=== PATIENT | male | born 1975 | race Caucasian/White ===

== ENCOUNTER 2020-08-23 21:33 | Emergency (ER) | payer BC ==
[~2020-08-23] VITALS: Ht 182.9 cm; Wt 90.9 kg
[2020-08-23 21:58] LABS: BASOPHILS % (AUTO) 0 % (0-10); EOSINOPHILS # (AUTO) 0.2 10^3/uL (0.0-0.3); EOSINOPHILS % (AUTO) 2 % (0-10); HEMATOCRIT 41 % (40-54); LYMPHOCYTES # (AUTO) 3.6 10^3/uL (1.0-4.0); LYMPHOCYTES % (AUTO) 36 % (12-44); MEAN CORPUSCULAR HEMOGLOBIN 30 pg (25-34); MEAN CORPUSCULAR HGB CONC 34 g/dL (32-36); MEAN CORPUSCULAR VOLUME 87 fL (80-99); MEAN PLATELET VOLUME 10.5 fL (9.0-12.2); MONOCYTES # (AUTO) 0.8 10^3/uL (0.0-1.0); MONOCYTES % (AUTO) 8 % (0-12); NEUTROPHILS # (AUTO) 5.3 10^3/uL (1.8-7.8); NEUTROPHILS % (AUTO) 54 % (42-75); PLATELET COUNT 336 10^3/uL (130-400); WHITE BLOOD COUNT 9.9 10^3/uL (4.3-11.0)
[2020-08-23] MEDS ORDERED: ASPIRIN 81 MG CHEW (CHILDREN'S ASA) PO ONE (22:00)
--- NOTE | 2020-08-23 22:03 | ED Chest Pain ---
General Chief Complaint: Chest Pain Stated Complaint: ELEV BP 176/105, CP Source: patient Exam Limitations: no limitations History of Present Illness Date Seen by Provider: Aug 23, 2020 Time Seen by Provider: 21:37 Initial Comments Patient presents ER by private conveyance with chief complaint about 1 hour prior he was sitting on the couch and felt some chest pain in his left chest nonradiating intermittent lasting about 10 to 20 seconds at a time and then alex g away about 4 or 5 times over the past hour. He has no previous history of this chest pain. It is not reproducible by deep inspiration or palpation. He does not have a cough shortness of air fever chills nausea vomiting diarrhea or sweats. He has no history of coronary disease. He did not take anything for it and came straight to the ER. He has no personal or primary family history of early onset coronary disease. He smokes about a pack of cigarettes per day has hyperlipidemia and does not take any medications. He is followed by Dr. Du. He has no other significant medical history. He says he has a occasional use of marijuana and a distant history of using stimulants but none in the past several years. Took his blood pressure and noted that it was up around 1 70-1 80 systolic. No history of anxiety or GERD. Allergies and Home Medications Allergies Coded Allergies: No Known Drug Allergies (Unverified , 08/23/20) Patient Home Medication List Home Medication List Reviewed: Yes Review of Systems Review of Systems Constitutional: No chills, No diaphoresis EENTM: No Blurred Vision, No Double Vision Respiratory: Denies Cough, Denies Shortness of Air Cardiovascular: See HPI, Chest Pain; Denies Irregular Heart Rate, Denies Lightheadedness Gastrointestinal: Denies Abdominal Pain, Denies Constipated, Denies Diarrhea, Denies Nausea Genitourinary: Denies Burning, Denies Discharge Musculoskeletal: No back pain, No joint pain All Other Systems Reviewed Negative Unless Noted: Yes Past [id number]-Clkwdm Hx Patient Social History Alcohol Use: Denies Use Recreational Drug Use: Yes Drug of Choice: Distant history of stimulants; occasional cannabis Smoking Status: Current Everyday Smoker Type Used: Cigarettes 2nd Hand Smoke Exposure: No Recent Foreign Travel: No Contact w/Someone Who Travel: No Recent Hopitalizations: No Physical Abuse: No Sexual Abuse: No Mistreated: No Fear: No Seasonal Allergies Seasonal Allergies: No Past Medical History Surgeries: Yes (EYE) Appendectomy Respiratory: No Cardiac: No Neurological: No Genitourinary: No Gastrointestinal: No Musculoskeletal: No Endocrine: No HEENT: No Cancer: No Psychosocial: No Integumentary: No Blood Disorders: No Physical Exam Vital Signs Vital Signs - First Documented 08/23/20 21:33 Temp 37.2 Pulse 101 Resp 12 B/P (MAP) 178/107 (130) Pulse Ox 98 O2 Delivery Room Air Capillary Refill : Less Than 3 Seconds Height, Weight, BMI Height: '" Weight: lbs. oz. kg; BMI Method: General Appearance: No Apparent Distress, WD/WN HEENT: Normal ENT Inspection, Pharynx Normal, Moist Mucous Membranes Neck: Full Range of Motion, Normal Inspection, Non Tender Respiratory: Chest Non Tender, Lungs Clear, Normal Breath Sounds, No Accessory Muscle Use, No Respiratory Distress Cardiovascular: Regular Rate, Rhythm, No Edema Gastrointestinal: Normal Bowel Sounds, Non Tender, Soft Extremity: Normal Capillary Refill, Normal Inspection, No Pedal Edema Neurologic/Psychiatric: Alert, Oriented x3, Normal Mood/Affect Skin: Normal Color, Warm/Dry Progress/Results/Core Measures Results/Orders Lab Results Laboratory Tests Test 08/23/20 21:45 08/23/20 22:25 08/24/20 00:01 Range/Units White Blood Count 9.9 4.3-11.0 10^3/uL Red Blood Count 4.74 4.30-5.52 10^6/uL Hemoglobin 14.0 13.3-17.7 g/dL Hematocrit 41 40-54 % Mean Corpuscular Volume 87 80-99 fL Mean Corpuscular Hemoglobin 30 25-34 pg Mean Corpuscular Hemoglobin Concent 34 32-36 g/dL Red Cell Distribution Width 13.0 10.0-14.5 % Platelet Count 336 130-400 10^3/uL Mean Platelet Volume 10.5 9.0-12.2 fL Immature Granulocyte % (Auto) 0 % Neutrophils (%) (Auto) 54 42-75 % Lymphocytes (%) (Auto) 36 12-44 % Monocytes (%) (Auto) 8 0-12 % Eosinophils (%) (Auto) 2 0-10 % Basophils (%) (Auto) 0 0-10 % Neutrophils # (Auto) 5.3 1.8-7.8 10^3/uL Lymphocytes # (Auto) 3.6 1.0-4.0 10^3/uL Monocytes # (Auto) 0.8 0.0-1.0 10^3/uL Eosinophils # (Auto) 0.2 0.0-0.3 10^3/uL Basophils # (Auto) 0.0 0.0-0.1 10^3/uL Immature Granulocyte # (Auto) 0.0 0.0-0.1 10^3/uL Prothrombin Time 12.2 12.2-14.7 SEC INR Comment 0.9 0.8-1.4 Activated Partial Thromboplast Time 28 24-35 SEC Sodium Level 140 135-145 MMOL/L Potassium Level 3.7 3.6-5.0 MMOL/L Chloride Level 108 H 98-107 MMOL/L Carbon Dioxide Level 20 L 21-32 MMOL/L Anion Gap 12 5-14 MMOL/L Blood Urea Nitrogen 20 H 7-18 MG/DL Creatinine 0.97 0.60-1.30 MG/DL Estimat Glomerular Filtration Rate > 60 BUN/Creatinine Ratio 21 Glucose Level 118 H 70-105 MG/DL Calcium Level 9.0 8.5-10.1 MG/DL Corrected Calcium 8.7 8.5-10.1 MG/DL Magnesium Level 2.1 1.6-2.4 MG/DL Total Bilirubin 0.2 0.1-1.0 MG/DL Aspartate Amino Transf (AST/SGOT) 18 5-34 U/L Alanine Aminotransferase (ALT/SGPT) 22 0-55 U/L Alkaline Phosphatase 55 40-136 U/L Myoglobin 29.6 10.0-92.0 NG/ML Troponin I < 0.028 < 0.028 <0.028 NG/ML Total Protein 7.6 6.4-8.2 GM/DL Albumin 4.4 3.2-4.5 GM/DL Lipase 35 8-78 U/L Urine Color YELLOW Urine Clarity CLEAR Urine pH 6.0 5-9 Urine Specific [place] >=1.030 1.016-1.022 Urine Protein NEGATIVE NEGATIVE Urine Glucose (UA) NEGATIVE NEGATIVE Urine Ketones TRACE H NEGATIVE Urine Nitrite NEGATIVE NEGATIVE Urine Bilirubin NEGATIVE NEGATIVE Urine Urobilinogen 0.2 < = 1.0 MG/DL Urine Leukocyte Esterase NEGATIVE NEGATIVE Urine RBC (Auto) NEGATIVE NEGATIVE Urine RBC NONE /HPF Urine WBC RARE /HPF Urine Squamous Epithelial Cells RARE /HPF Urine Crystals NONE /LPF Urine Bacteria TRACE /HPF Urine Casts PRESENT /LPF Urine Hyaline Casts RARE /LPF Urine Mucus MODERATE H /LPF Urine Culture Indicated NO Urine Opiates Screen NEGATIVE NEGATIVE Urine Oxycodone Screen NEGATIVE NEGATIVE Urine Methadone Screen NEGATIVE NEGATIVE Urine Propoxyphene Screen NEGATIVE NEGATIVE Urine Barbiturates Screen NEGATIVE NEGATIVE Ur Tricyclic Antidepressants Screen NEGATIVE NEGATIVE Urine Phencyclidine Screen NEGATIVE NEGATIVE Urine Amphetamines Screen NEGATIVE NEGATIVE Urine Methamphetamines Screen NEGATIVE NEGATIVE Urine Benzodiazepines Screen NEGATIVE NEGATIVE Urine Cocaine Screen NEGATIVE NEGATIVE Urine Cannabinoids Screen POSITIVE H NEGATIVE My Orders Orders - ML,MARY J Continuous Ekg Monitoring (08/23/20 21:34) Ekg Tracing (08/23/20 21:34) Ua Culture If Indicated (08/23/20 21:50) Drug Screen Stat (Urine) (08/23/20 21:50) Cbc With Automated Diff (08/23/20 21:50) Magnesium (08/23/20 21:50) Chest 1 View, Ap/Pa Only (08/23/20 21:50) Comprehensive Metabolic Panel (08/23/20 21:50) Myoglobin Serum (08/23/20 21:50) Protime With Inr (08/23/20 21:50) Partial Thromboplastin Time (08/23/20 21:50) O2 (08/23/20 21:50) Lipid Panel (08/24/20 06:00) Ed Iv/Invasive Line Start (08/23/20 21:50) Lipase (08/23/20 21:50) Troponin I (08/23/20 21:50) Aspirin Chewable Tablet (Baby Aspirin Ch (08/23/20 22:00) Ekg Tracing (08/23/20 22:47) Troponin I (08/24/20 00:01) Medications Given in ED Current Medications Medications Dose Ordered Sig/Wai Route Start Time Stop Time Status Last Admin Dose Admin Aspirin 324 mg ONCE ONCE PO 08/23/20 22:00 08/23/20 22:01 DC 08/23/20 21:59 324 MG Vital Signs/I&O 08/23/20 08/23/20 21:33 21:33 Temp 37.2 Pulse 101 Resp 12 B/P (MAP) 178/107 (130) Pulse Ox 98 O2 Delivery Room Air Room Air Progress Progress Note #1: Time: 22:00 Progress Note If he has a negative troponin he would have a heart score of 3 points: Low risk. 0.9-1.7% 30-day MACE. Repeat troponin at 3 hours and if negative, discharge home with outpatient follow-up. Repeat troponin at midnight. He is not having any discomfort now so we will give him some aspirin to chew up and swallow. If he has discomfort will trial nitroglycerin or GI cocktail. Labs and chest x-ray ordered. Progress Note #2: Time: 22:46 Progress Note Chest x-ray is pending and be prompted to get this moving. Patient has not had any further pain or material deterioration during his ER stay. We discussed with him doing a delta troponin at midnight and he is okay with this plan. We gave him some water to drink. He is comfortable and asymptomatic. First set of labs are reassuring. Plan to get a repeat EKG as well. Initial ECG Impression Date: Aug 23, 2020 Initial ECG Impression Time: 21:39 Initial ECG Rate: 100 Initial ECG Rhythm: S.Tach Initial ECG Intervals: Normal Initial ECG Impression: Normal, Nonspecific Changes Comment No previous EKG to compare to but he does have a minor, nonspecific half block of ST elevation in leads V1 and V2 and perhaps V3 of uncertain clinical significance. Sinus tachycardia without any other clinically relevant ST changes. EKG : EKG Time: 22:48 Rate: 74 Rhythm: Normal Sinus Intervals: Normal ECG Comparisson: Changed ECG Impression: Normal Comment Normal sinus rhythm without clinically relevant ST elevation or depression. Diagnostic Imaging Diagonstic Imaging: Xray Plain Films/CT/US/NM/MRI: chest Comments No acute cardiopulmonary process on 1 view chest x-ray Reviewed: Reviewed by Me Consults : Consulting Physician: Dante ALCANTARA MD Consults Notes Reviewed the EKG and he does not find the minor changes to be concerning. He recommends usual work-up. Departure Impression Primary Impression: Chest pain Qualified Codes: R07.9 - Chest pain, unspecified Disposition: 01 HOME, SELF-CARE Condition: Improved Departure-Patient Inst. Decision time for Depature: 00:39 Referrals: TREVOR PEREZ MD FACP FAC CCDS CHRIS HERNANDEZ MD (PCP/Family) Primary Care Physician Patient Instructions: Chest Pain (DC) Add. Discharge Instructions: I have not found the specific reason for your chest pain today. It could be related to your chest wall or your heart or other reasons. I recommend you follow-up with Dr. Perez, cardiology next week by calling for an appointment within the next week. If your pain returns and persists then I would encourage you to follow-up with the nearest ER promptly. If your [facility] sewer evaluates you and determines that your chest pain is not related to your heart then I would have you follow-up with your primary care doctor next to further investigate this symptom. All discharge instructions reviewed with patient and/or family. Voiced understanding. Copy Copies To 1: TREVOR PEREZ MD FACP FAC CCDS MARY BULL Aug 23, 2020 22:03
[2020-08-23 22:08] LABS: ALBUMIN 4.4 GM/DL (3.2-4.5); INR 0.9 (0.8-1.4); PROTHROMBIN TIME PATIENT 12.2 SEC (12.2-14.7)
[2020-08-23 22:09] LABS: CHLORIDE 108 MMOL/L (98-107); POTASSIUM 3.7 MMOL/L (3.6-5.0); SODIUM 140 MMOL/L (135-145)
[2020-08-23 22:11] LABS: GLUCOSE 118 MG/DL (70-105); TOTAL PROTEIN 7.6 GM/DL (6.4-8.2)
[2020-08-23 22:12] LABS: CARBON DIOXIDE 20 MMOL/L (21-32)
[2020-08-23 22:13] LABS: BILIRUBIN,TOTAL 0.2 MG/DL (0.1-1.0)
[2020-08-23 22:15] LABS: ALKALINE PHOSPHATASE 55 U/L (40-136); CREATININE SERUM 0.97 MG/DL (0.60-1.30); GFR ESTIMATED > 60
[2020-08-23 22:16] LABS: BUN/CREATININE RATIO 21
[2020-08-23 22:17] LABS: MAGNESIUM 2.1 MG/DL (1.6-2.4)
[2020-08-23 22:18] LABS: ALANINE AMINOTRANSFERASE 22 U/L (0-55); LIPASE 35 U/L (8-78)
[2020-08-23 22:33] LABS: BILIRUBIN,URINE NEGATIVE (NEGATIVE); CLARITY,URINE CLEAR; COLOR,URINE YELLOW; GLUCOSE, URINE (UA) NEGATIVE (NEGATIVE); KETONES,URINE TRACE (NEGATIVE); LEUKOCYTE ESTERASE ,URINE NEGATIVE (NEGATIVE); NITRITE,URINE NEGATIVE (NEGATIVE); PROTEIN,URINE NEGATIVE (NEGATIVE)
[2020-08-23 22:40] LABS: BACTERIA,URINE TRACE /HPF; HYALINE CASTS, URINE RARE /LPF; SQUAMOUS EPITHELIAL CELL,UR RARE /HPF; WBC,URINE RARE /HPF
[2020-08-23 22:48] LABS: AMPHETAMINE SCREEN, URINE NEGATIVE (NEGATIVE); BARBITURATE SCREEN URINE NEGATIVE (NEGATIVE); BENZODIAZEPINES SCREEN URINE NEGATIVE (NEGATIVE); CANNABINOID SCREEN, URINE POSITIVE (NEGATIVE); COCAINE SCREEN URINE NEGATIVE (NEGATIVE); METHADONE STAT NEGATIVE (NEGATIVE); METHAMPHETAMINE SCREEN URINE S NEGATIVE (NEGATIVE); OPIATE SCREEN URINE NEGATIVE (NEGATIVE); OXYCODONE STAT NEGATIVE (NEGATIVE); PROPOXYPHENE STAT NEGATIVE (NEGATIVE); TRICYCLIC ANTIDEPRESSANTS SCRE NEGATIVE (NEGATIVE)
[2020-08-24 01:02] VITALS: BP 142/95
--- NOTE | 2020-08-24 07:05 | Diagnostic Imaging Report ---
EXAM: Portable erect AP chest at 11:21 PM INDICATION: Chest pain COMPARISON: There are no prior studies available for comparison. FINDINGS: The heart size is within normal limits. The lungs are clear. There is no evidence for failure, pneumonia or for a pleural effusion. The mediastinum is not widened. The osseous structures are intact. IMPRESSION: There is no evidence for active disease. Dictated by: Dictated on workstation # [id number]
== END 2020-08-24 01:03 | disposition home or self-care (01) ==
LOC: EDUNIT# 21:33 → ER 21:35
DX: R07.9 Chest pain, unspecified (principal); F17.210 Nicotine dependence, cigarettes, uncomplicated
CPT/HCPCS: 36415; 71045; 80053; 80306; 81000; 83690; 83735; 83874; 84484; 85025; 85610; 85730; 93005

== ENCOUNTER 2020-09-22 22:50 | Emergency (ER) | payer BC ==
[~2020-09-22] VITALS: Ht 185.5 cm; Wt 88.9 kg
[2020-09-22 23:29] LABS: BASOPHILS % (AUTO) 0 % (0-10); EOSINOPHILS # (AUTO) 0.3 10^3/uL (0.0-0.3); EOSINOPHILS % (AUTO) 3 % (0-10); HEMATOCRIT 42 % (40-54); HEMOGLOBIN 13.6 g/dL (13.3-17.7); LYMPHOCYTES # (AUTO) 3.5 10^3/uL (1.0-4.0); LYMPHOCYTES % (AUTO) 42 % (12-44); MEAN CORPUSCULAR HEMOGLOBIN 28 pg (25-34); MEAN CORPUSCULAR HGB CONC 32 g/dL (32-36); MEAN CORPUSCULAR VOLUME 88 fL (80-99); MEAN PLATELET VOLUME 10.6 fL (9.0-12.2); MONOCYTES # (AUTO) 0.6 10^3/uL (0.0-1.0); MONOCYTES % (AUTO) 7 % (0-12); NEUTROPHILS # (AUTO) 4.1 10^3/uL (1.8-7.8); NEUTROPHILS % (AUTO) 48 % (42-75); PLATELET COUNT 248 10^3/uL (130-400); WHITE BLOOD COUNT 8.4 10^3/uL (4.3-11.0)
[2020-09-22] MEDS ORDERED: cloNIDine 0.1 MG (CATAPRES) TAB PO ONE (23:30)
[2020-09-22 23:32] LABS: BILIRUBIN,URINE NEGATIVE (NEGATIVE); CLARITY,URINE CLEAR; COLOR,URINE YELLOW; GLUCOSE, URINE (UA) NEGATIVE (NEGATIVE); KETONES,URINE NEGATIVE (NEGATIVE); LEUKOCYTE ESTERASE ,URINE NEGATIVE (NEGATIVE); NITRITE,URINE NEGATIVE (NEGATIVE); PROTEIN,URINE NEGATIVE (NEGATIVE)
[2020-09-22 23:39] LABS: INR 0.9 (0.8-1.4); PROTHROMBIN TIME PATIENT 12.6 SEC (12.2-14.7)
[2020-09-22 23:48] LABS: BACTERIA,URINE NEGATIVE /HPF; SQUAMOUS EPITHELIAL CELL,UR RARE /HPF
[2020-09-22 23:49] LABS: AMPHETAMINE SCREEN, URINE NEGATIVE (NEGATIVE); BARBITURATE SCREEN URINE NEGATIVE (NEGATIVE); BENZODIAZEPINES SCREEN URINE NEGATIVE (NEGATIVE); CANNABINOID SCREEN, URINE POSITIVE (NEGATIVE); COCAINE SCREEN URINE NEGATIVE (NEGATIVE); METHADONE STAT NEGATIVE (NEGATIVE); METHAMPHETAMINE SCREEN URINE S NEGATIVE (NEGATIVE); OPIATE SCREEN URINE NEGATIVE (NEGATIVE); OXYCODONE STAT NEGATIVE (NEGATIVE); PROPOXYPHENE STAT NEGATIVE (NEGATIVE); TRICYCLIC ANTIDEPRESSANTS SCRE NEGATIVE (NEGATIVE)
[2020-09-22 23:49] LABS: ALANINE AMINOTRANSFERASE 22 U/L (0-55); ALBUMIN 4.4 GM/DL (3.2-4.5); ALKALINE PHOSPHATASE 58 U/L (40-136); BILIRUBIN,TOTAL 0.2 MG/DL (0.1-1.0); BUN/CREATININE RATIO 24; CALCIUM 9.3 MG/DL (8.5-10.1); CARBON DIOXIDE 21 MMOL/L (21-32); CHLORIDE 108 MMOL/L (98-107); CREATINE KINASE 107 U/L (30-200); CREATININE SERUM 0.91 MG/DL (0.60-1.30); GFR ESTIMATED > 60; GLUCOSE 145 MG/DL (70-105); MAGNESIUM 1.7 MG/DL (1.6-2.4); POTASSIUM 3.5 MMOL/L (3.6-5.0); SODIUM 140 MMOL/L (135-145); TOTAL PROTEIN 7.2 GM/DL (6.4-8.2)
[2020-09-23 00:08] LABS: CREATINE KINASE MB 1.9 NG/ML (<6.6); TSH (THYROID ANALYZER) 0.83 UIU/ML (0.35-4.94)
[2020-09-23] MEDS ORDERED: PANTOPRAZOLE 40 MG (PROTONIX) TAB PO ONE (01:15)
[2020-09-23] MEDS ORDERED: PANT40TA2 PO (01:15)
--- NOTE | 2020-09-23 01:17 | ED Cardiac General ---
History of Present Illness General Chief Complaint: Cardiac/General Problems Stated Complaint: ELEVATED BP Nursing Triage Note: TO ED VIA POV AND AMBULATORY TO ROOM 7 WITH C/O LAYING IN BED AND ONSET OF FEELING LIKE HEART RACING. HE CHECKED HIS BP WHICH WAS 200s/100s. RECENT NEW RX LISINOPRIL 10MG DAILY. TOOK 4 BABY ASA LOGISTICS INTERN. HX ASTHMA AND USED PROVENTIL INH 1H LOGISTICS INTERN. Source: patient History of Present Illness Date Seen by Provider: Sep 22, 2020 Time Seen by Provider: 23:11 Initial Comments PT ARRIVES VIA POV FROM HOME STATES HE WAS TRYING TO GO TO SLEEP, AND SUDDENLY FELT HIS HEART POUNDING HARD--BEGAN 35 MINUTES AGO, AND IS BETTER NOW CHECKED HIS BLOOD PRESSURE AT HOME AND IT WAS 220/86 SO CAME HERE DENIES CHEST PAIN DENIES SHORTNESS OF BREATH DENIES NAUSEA/VOMITING STATES HIS PALMS GOT SWEATY BUT NO SWEATING ANYWHERE ELSE DENIES DIZZINESS OR SYNCOPE DENIES HEADACHE NO VISION CHANGES NO PARESTHESIAS OR MOTOR DEFICITS AGAIN DENIES CHEST PAIN OR SHORTNESS OF BREATH, BUT STATES HE USED HIS PROVENTIL INHALER PRIOR TO ARRIVAL--STATES HE HAS ASTHMA AND "MY CHEST TIGHTENED UP LIKE IT ALWAYS DOES" ALSO TOOK 4 BABY ASPIRIN PRIOR TO ARRIVAL STATES HE WAS SEEN HERE "A COUPLE OF WEEKS AGO" FOR "THE SAME THING" --SEEN HERE 08/23/20 AND COMPLAINED OF CHEST PAIN AT THAT TIME. WORK UP WAS NEGATIVE FOR ACUTE CARDIAC EVENT, BUT WAS FOUND TO HAVE HTN PT FOLLOWED UP WITH DR. HERNANDEZ A COUPLE OF WEEKS AGO AND WAS STARTED ON LISINOPRIL 10 MG DAILY--STATES HE HAS NOT MISSED ANY DOSES. NO FOLLOW UP APPOINTMENT AT THIS TIME WITH DR. HERNANDEZ HAS AN APPOINTMENT ON 09/29/[address] CHERY, YOUTH SUPPORT WORKER FOR THESE PROBLEMS NO PRIOR HISTORY OF HTN OR HEART PROBLEMS PT STATES HE DID HAVE COVID-19 THE END OF JULY. HAD ONLY MINOR SINUS SYMPTOMS. MULTIPLE CO-WORKERS HAD COVID AND WAS TESTED AT [facility]. NO TREATMENT NEEDED. NO SYMPTOMS SINCE PCP: [facility]. DR. HERNANDEZ TO SEE DR. CHERY 09/29/20 Allergies and Home Medications Allergies Coded Allergies: No Known Drug Allergies (Unverified , 08/23/20) Home Medications Pantoprazole Sodium 40 Mg Tablet.dr, 40 MG PO DAILY Prescribed by: CAROL LAN on 09/23/20 0115 Patient Home Medication List Home Medication List Reviewed: Yes Review of Systems Review of Systems Constitutional: see HPI; No dizziness, No fever, No malaise, No weakness EENTM: No Symptoms Reported Respiratory: See HPI; Denies Cough Cardiovascular: See HPI, Palpitations Gastrointestinal: No Symptoms Reported; Denies Abdominal Pain, Denies Nausea, Denies Vomiting Genitourinary: No Symptoms Reported Musculoskeletal: no symptoms reported; No back pain Skin: no symptoms reported Psychiatric/Neurological: Anxiety Endocrine: No Symptoms Reported Hematologic/Lymphatic: No Symptoms Reported Past [id number]-Xylwvi-Xdfboq Hx Patient Social History Alcohol Use: Denies Use Drug of Choice: Distant history of stimulants; PAST MARIJUANA USE Smoking Status: Current Everyday Smoker (08/16 PPD) Type Used: Cigarettes 2nd Hand Smoke Exposure: No Recent Infectious Disease Expo: No Recent Hopitalizations: No Seasonal Allergies Seasonal Allergies: No Past Medical History Surgeries: Yes (LEFT EYE SURGERIES DUE TO TRAUMA) Appendectomy, Eye Surgery Respiratory: Yes Asthma Cardiac: Yes High Cholesterol, Hypertension Neurological: No Genitourinary: No Gastrointestinal: No Musculoskeletal: No Endocrine: No HEENT: Yes (LEFT EYE TRAUMA-MULTIPLE SURGERIES-MINIMAL VISION AND DISCONJUGATE GAZE ) Cancer: No Psychosocial: No Integumentary: No Blood Disorders: No Family Medical History SOCIAL HISTORY: -ETOH--RARE USE -DRUGS--THC, "STIMULANTS" IN THE PAST -SMOKES 08/16 PPD Physical Exam Vital Signs Vital Signs - First Documented 09/22/20 09/23/20 23:11 01:23 Temp 37.4 Pulse 106 Resp 20 B/P (MAP) 184/102 (129) Pulse Ox 97 O2 Delivery Room Air Capillary Refill : Less Than 3 Seconds Height, Weight, BMI Height: '" Weight: lbs. oz. kg; 25.00 BMI Method: General Appearance: No Apparent Distress, WD/WN, Anxious HEENT: Other (LEFT EYE WITH DISCONJUGATE GAZE, AND SOME OPACIFICATION OF CORNEA--KEEPS LEFT EYE CLOSED AT ALL TIMES) Neck: Full Range of Motion, Normal Inspection, Non Tender, Supple; No Carotid Bruit, No JVD Respiratory: Chest Non Tender, Normal Breath Sounds, No Accessory Muscle Use, No Respiratory Distress, Other (MILD HYPERVENTILATION) Cardiovascular: No Edema, No JVD, No Murmur, Normal Peripheral Pulses, Tachycardia Gastrointestinal: Normal Bowel Sounds, No Organomegaly, No Pulsatile Mass, Non Tender, Soft Extremity: Normal Capillary Refill, Normal Inspection, Normal Range of Motion, Non Tender, No Calf Tenderness, No Pedal Edema Neurologic/Psychiatric: Alert, Oriented x3, No Motor/Sensory Deficits, Normal Mood/Affect, food safety manager II-XII Norm as Tested (ON RIGHT EYE--LEFT EYE WITH POST TRAUMATIC CHANGES AND DISCONJUGATE GAZE) Skin: Normal Color, Warm/Dry; No Rash Progress/Results/Core Measures Results/Orders Lab Results Laboratory Tests Test 09/22/20 23:20 09/22/20 23:27 Range/Units White Blood Count 8.4 4.3-11.0 10^3/uL Red Blood Count 4.79 4.30-5.52 10^6/uL Hemoglobin 13.6 13.3-17.7 g/dL Hematocrit 42 40-54 % Mean Corpuscular Volume 88 80-99 fL Mean Corpuscular Hemoglobin 28 25-34 pg Mean Corpuscular Hemoglobin Concent 32 32-36 g/dL Red Cell Distribution Width 12.7 10.0-14.5 % Platelet Count 248 130-400 10^3/uL Mean Platelet Volume 10.6 9.0-12.2 fL Immature Granulocyte % (Auto) 0 % Neutrophils (%) (Auto) 48 42-75 % Lymphocytes (%) (Auto) 42 12-44 % Monocytes (%) (Auto) 7 0-12 % Eosinophils (%) (Auto) 3 0-10 % Basophils (%) (Auto) 0 0-10 % Neutrophils # (Auto) 4.1 1.8-7.8 10^3/uL Lymphocytes # (Auto) 3.5 1.0-4.0 10^3/uL Monocytes # (Auto) 0.6 0.0-1.0 10^3/uL Eosinophils # (Auto) 0.3 0.0-0.3 10^3/uL Basophils # (Auto) 0.0 0.0-0.1 10^3/uL Immature Granulocyte # (Auto) 0.0 0.0-0.1 10^3/uL Prothrombin Time 12.6 12.2-14.7 SEC INR Comment 0.9 0.8-1.4 Activated Partial Thromboplast Time 27 24-35 SEC Sodium Level 140 135-145 MMOL/L Potassium Level 3.5 L 3.6-5.0 MMOL/L Chloride Level 108 H 98-107 MMOL/L Carbon Dioxide Level 21 21-32 MMOL/L Anion Gap 11 5-14 MMOL/L Blood Urea Nitrogen 22 H 7-18 MG/DL Creatinine 0.91 0.60-1.30 MG/DL Estimat Glomerular Filtration Rate > 60 BUN/Creatinine Ratio 24 Glucose Level 145 H 70-105 MG/DL Calcium Level 9.3 8.5-10.1 MG/DL Corrected Calcium 9.0 8.5-10.1 MG/DL Magnesium Level 1.7 1.6-2.4 MG/DL Total Bilirubin 0.2 0.1-1.0 MG/DL Aspartate Amino Transf (AST/SGOT) 22 5-34 U/L Alanine Aminotransferase (ALT/SGPT) 22 0-55 U/L Alkaline Phosphatase 58 40-136 U/L Total Creatine Kinase 107 30-200 U/L Creatine Kinase MB 1.9 <6.6 NG/ML Troponin I < 0.028 <0.028 NG/ML B-Type Natriuretic Peptide < 10.0 <100.0 PG/ML Total Protein 7.2 6.4-8.2 GM/DL Albumin 4.4 3.2-4.5 GM/DL TSH [place] Testing 0.83 0.35-4.94 UIU/ML Serum Alcohol < 10 <10 MG/DL Urine Color YELLOW Urine Clarity CLEAR Urine pH 6.0 5-9 Urine Specific [place] 1.020 1.016-1.022 Urine Protein NEGATIVE NEGATIVE Urine Glucose (UA) NEGATIVE NEGATIVE Urine Ketones NEGATIVE NEGATIVE Urine Nitrite NEGATIVE NEGATIVE Urine Bilirubin NEGATIVE NEGATIVE Urine Urobilinogen 0.2 < = 1.0 MG/DL Urine Leukocyte Esterase NEGATIVE NEGATIVE Urine RBC (Auto) NEGATIVE NEGATIVE Urine RBC NONE /HPF Urine WBC NONE /HPF Urine Squamous Epithelial Cells RARE /HPF Urine Crystals NONE /LPF Urine Bacteria NEGATIVE /HPF Urine Casts NONE /LPF Urine Mucus LARGE H /LPF Urine Culture Indicated NO Urine Opiates Screen NEGATIVE NEGATIVE Urine Oxycodone Screen NEGATIVE NEGATIVE Urine Methadone Screen NEGATIVE NEGATIVE Urine Propoxyphene Screen NEGATIVE NEGATIVE Urine Barbiturates Screen NEGATIVE NEGATIVE Ur Tricyclic Antidepressants Screen NEGATIVE NEGATIVE Urine Phencyclidine Screen NEGATIVE NEGATIVE Urine Amphetamines Screen NEGATIVE NEGATIVE Urine Methamphetamines Screen NEGATIVE NEGATIVE Urine Benzodiazepines Screen NEGATIVE NEGATIVE Urine Cocaine Screen NEGATIVE NEGATIVE Urine Cannabinoids Screen POSITIVE H NEGATIVE My Orders Orders - CAROL LAN DO Ed Iv/Invasive Line Start (09/22/20 23:22) Ekg Tracing (09/22/20 23:22) Monitor-Rhythm Ecg Trace Only (09/22/20 23:22) Alcohol (09/22/20 23:22) BNP (09/22/20 23:22) Cbc With Automated Diff (09/22/20 23:22) Comprehensive Metabolic Panel (09/22/20 23:22) Creatine Kinase (09/22/20 23:22) Creatine Kinase Mb (09/22/20 23:22) Drug Screen Stat (Urine) (09/22/20 23:22) Magnesium (09/22/20 23:22) Protime With Inr (09/22/20 23:22) Partial Thromboplastin Time (09/22/20 23:22) Thyroid Analyzer (09/22/20 23:22) Ua Culture If Indicated (09/22/20 23:22) Troponin I (09/22/20 23:22) Chest 1 View, Ap/Pa Only (09/22/20 23:22) Clonidine Tablet (Catapres Tablet) (09/22/20 23:30) Ct Angio Chest W (09/23/20 00:01) Pantoprazole Tablet (Protonix Tablet) (09/23/20 01:15) Medications Given in ED Current Medications Medications Dose Ordered Sig/Wai Route Start Time Stop Time Status Last Admin Dose Admin Clonidine HCl 0.1 mg ONCE ONCE PO 09/22/20 23:30 09/22/20 23:31 DC 09/22/20 23:30 0.1 MG Pantoprazole Sodium 40 mg ONCE ONCE PO 09/23/20 01:15 09/23/20 01:16 DC 09/23/20 01:22 40 MG Vital Signs/I&O 09/22/20 09/23/20 23:11 01:23 Temp 37.4 37.4 Pulse 106 77 Resp 20 16 B/P (MAP) 184/102 (129) 145/95 (129) Pulse Ox 97 O2 Delivery Room Air Room Air Blood Pressure Mean: 129 Progress Progress Note : Progress Note GIVEN CLONIDONE FOR BLOOD PRESSURE BP DOWN TO 140'S/70'S, HR DOWN AND PT ASYMPTOMATIC AT DISMISSAL Initial ECG Impression Date: Sep 22, 2020 Initial ECG Impression Time: 23:16 Initial ECG Rate: 102 Initial ECG Rhythm: S.Tach Diagnostic Imaging Comments CXR--NO ACUTE PROCESS, PENDING RADIOLOGIST REVIEW CT CHEST ANGIOGRAM--PER [facility] VIA FAX AT 0104 -INSUFFICIENT CONTRAST TO EXCLUDE PULMONARY EMBOLISM -NO ACUTE INTRATHORACIC PROCESS -BILATERAL ADRENAL MASSES, DIFFERENTIAL INCLUDES ADRENAL ADENOMA -CANNOT RULE OUT ESOPHAGITIS Reviewed: Reviewed by Me Departure Impression Primary Impression: HTN (hypertension) Additional Impressions: Palpitations with regular cardiac rhythm Esophagitis BILATERAL ADRENAL GLAND MASSES Disposition: HOME, SELF-CARE Condition: Improved Departure-Patient Inst. Referrals: CHRIS HERNANDEZ MD (PCP/Family) Primary Care Physician Patient Instructions: Acid Reflux and GERD in Adults (DC), DASH Diet, High Blood Pressure (DC), Palpitations (DC) Add. Discharge Instructions: INCREASE YOUR LISINOPRIL TO 20 MG DAILY SLEEP ON 2-3 PILLOWS OR ELEVATE THE HEAD OF BED--AVOID LAYING FLAT AVOID CAFFEINE OR OTHER STIMULANTS FOLLOW UP WITH DR. HERNANDEZ THIS WEEK FOR FURTHER EVALUATION OF BLOOD PRESSURE, ESOPHAGITIS AND ADRENAL MASSES All discharge instructions reviewed with patient and/or family. Voiced understanding. Scripts Pantoprazole Sodium (Protonix) 40 Mg Tablet. 40 MG PO DAILY, #15 TAB Prov: CAROL LAN DO 09/23/20 CAROL LAN DO Sep 23, 2020 01:16
[2020-09-23 01:23] VITALS: BP 145/95
--- NOTE | 2020-09-23 08:09 | Diagnostic Imaging Report ---
INDICATION: Hypertension COMPARISON: 08/23/2020 TECHNIQUE: Single radiograph of the chest dated 09/22/2020. FINDINGS: The cardiac silhouette is within normal limits in size. No significant pulmonary vascular congestion. The lungs are clear. No pleural effusion. No pneumothorax. No acute osseous abnormality. IMPRESSION: No acute cardiopulmonary abnormality. Dictated by: Dictated on workstation # [id number]
--- NOTE | 2020-09-23 08:28 | Diagnostic Imaging Report ---
PROCEDURE: CT angiography of the chest with contrast. TECHNIQUE: Multiple contiguous axial images were obtained through the chest after uneventful bolus administration of intravenous contrast. 3D reconstructed CTA MIP acquisitions were also performed. Auto Exposure Controls were utilized during the CT exam to meet ALARA standards for radiation dose reduction. INDICATION: Pulmonary embolism, high probability, hypertension COMPARISON: 09/22/2020 FINDINGS: No significant adenopathy within the chest. No aneurysmal dilatation of the thoracic aorta. The heart is within normal limits in size. No significant pericardial effusion. No pleural effusion. Mild mural thickening of the distal esophagus. No pneumothorax. 0.7 cm left upper lobe pulmonary nodule, series 2, image 49. A couple of subpleural sub 0.6 cm left lower lobe pulmonary nodules are present. 0.7 cm subpleural right lower lobe pulmonary nodule, series 2, image 91. The trachea is patent. Evaluation for pulmonary emboli is slightly limited as the majority of the contrast is within the superior vena cava and left subclavian vein. No definite central pulmonary embolus. Evaluation for segmental pulmonary emboli is limited. Evaluation for subsegmental pulmonary emboli is severely limited. 2.2 cm mass in the right adrenal gland. 1.1 cm mass within the left adrenal gland. The visualized upper abdomen is otherwise unremarkable. No acute osseous abnormality. IMPRESSION: No definite large central pulmonary embolus. However, evaluation for pulmonary emboli is limited secondary to contrast bolus timing. Bilateral adrenal gland masses. Findings are favored related to bilateral adrenal adenomas versus hyperplasia. Comparison to prior imaging would be beneficial. If no prior imaging is available, a follow-up CT of the abdomen without contrast in 6 months is recommended to reevaluate. Mild mural thickening of the distal esophagus, felt related to esophagitis versus distention. Bilateral sub- 0.7 cm pulmonary nodules as described above. If no prior imaging is available to demonstrate greater than 2 years of stability for these pulmonary nodules, then a follow-up CT of the chest is recommended in 6 months. Report was faxed/called to Dr. Wagner [facility] by wisam at 8:26am. PEÑA Keenan, was also notified. Dictated by: Dictated on workstation # [id number]
== END 2020-09-23 01:28 | disposition home or self-care (01) ==
LOC: EDUNIT# 22:50 → ER 22:53
DX: I10 Essential (primary) hypertension (principal); K20.90 Esophagitis, unspecified without bleeding; E27.8 Other specified disorders of adrenal gland; F17.210 Nicotine dependence, cigarettes, uncomplicated; Z86.16 Personal history of COVID-19
CPT/HCPCS: 71045; 71275; 80053; 80306; 81000; 82550; 82553; 83735; 83880; 84443; 84484; 85025; 85610; 85730; 93005; 93041; 99284; G0480; 36415; 80320

== ENCOUNTER → 2020-10-14 | Outpatient (CLI) | payer BC ==
[~2020-10-14] VITALS: Ht 185 cm; Wt 88.0 kg
[~2020-10-14] MED LIST: CATHETER FLUSH 10 ML SYR IV PRN; PANT40TA2 PO; REGADENOSON 0.4 MG/5 ML SYR (LEXISCAN) IV ONE
[2020-10-14 13:01] VITALS: BP 146/86
--- NOTE | 2020-10-16 11:31 | STRESS TEST ---
DATE OF SERVICE: 10/14/2020 RESTING AND POST REGADENOSON TECHNETIUM-99M TETROFOSMIN SPECT CT IMAGING ORDERING PHYSICIAN: Dr. Perez. PRIMARY PHYSICIAN: Dr. Rashid. CLINICAL DIAGNOSIS: Chest discomfort. Baseline images were carried out after injection of 10.10 mCi of technetium-99m Tetrofosmin. This was followed by 0.4 mg regadenoson and 30.7 mCi of technetium-99m Tetrofosmin for stress imaging. The electrocardiogram showed sinus rhythm at baseline. The electrocardiogram did not change significantly with the regadenoson infusion. The patient noted some shortness of breath and facial flushing after regadenoson infusion, which resolved in a few minutes. Review of images at rest and following stress does not indicate any distinct perfusion defects consistent with myocardial ischemia or infarction. Gated images show normal global left ventricular systolic function with normal regional wall motion. Left ventricular ejection fraction is calculated to be 49%. TID is absent (0.99). CONCLUSIONS: 1. No evidence of significant myocardial ischemia or infarction is seen. 2. Well preserved global left ventricular systolic function without regional wall motion abnormality and with a calculated ejection fraction of 49%. Job ID: [id number] DocumentID: [id number] Dictated Date: 10/16/2020 09:17:55 Supervisor Cooler Service Date: 10/16/2020 11:29:54 Dictated By: TREVOR PEREZ MD, MA, FACP, FACC,
== END ==
LOC: CARD 11:14
PROVIDERS: ATTEND Internal Medicine Cardiovascular Disease
DX: I51.7 Cardiomegaly (principal)
CPT/HCPCS: 78452; 93017; 93225; 93226; 93306; A9502

== ENCOUNTER 2020-11-03 08:03 | Outpatient (CLI) | payer BC ==
[~2020-11-03] VITALS: Ht 185.5 cm; Wt 87.7 kg
[~2020-11-03 08:03] MED LIST changes: -CATHETER FLUSH 10 ML SYR IV PRN; -REGADENOSON 0.4 MG/5 ML SYR (LEXISCAN) IV ONE
[2020-11-03] MEDS ORDERED: METO200T48 PO (12:26)
[2020-11-03] MEDS ORDERED: cholesterol med PO (12:31)
[2020-11-03] MEDS ORDERED: AMLO-250 PO (12:31)
[2020-11-03] MEDS ORDERED: RT-ALBUINH INH (12:31)
== END 2020-11-03 12:36 | disposition home or self-care (01) ==
LOC: PREOP 08:03 → EDSTATUS 12:30 → PREOP 12:36
PROVIDERS: ATTEND Specialist
DX: Z01.818 Encounter for other preprocedural examination (principal)

== ENCOUNTER 2020-11-10 07:59 | Day surgery (SDC) | payer BC ==
[2020-11-10] VITALS (11 sets, daily range): BP systolic 98–149; BP diastolic 57–101
[~2020-11-10] VITALS: Ht 185.5 cm; Wt 87.7 kg
[~2020-11-10 07:59] MED LIST changes: +AMLO-250 PO; +METO200T48 PO; +RT-ALBUINH INH; +cholesterol med PO
[2020-11-10] MEDS ORDERED: ceFAZolin 2 GM IV Premixed 50 ML IV ONE (08:15)
[2020-11-10] MEDS: LACTATED RINGERS 1,000 ML IV PRN ×2 (08:50→10:59)
[2020-11-10] MEDS ORDERED: ROPIVACAINE 5MG/ML 30ML VIAL ONE (09:02)
[2020-11-10] MEDS ORDERED: LIDOCAINE/EPI 1%-1:100,000 (XYLOCAINE) 20ML ONE (09:02)
[2020-11-10] MEDS ORDERED: ROCURONIUM 10 MG/ML 5 ML SYRINGE IV ONE ×2 (09:32→11:06)
[2020-11-10] MEDS ORDERED: proPOfol 200 MG/20 ML (DIPRIVAN) VIAL IV ONE (09:32)
[2020-11-10] MEDS ORDERED: LIDOCAINE PF 2% 5 ML (XYLOCAINE) VIAL ONE (09:32)
[2020-11-10] MEDS ORDERED: ONDANSETRON 4 MG/2 ML (SDV) Z0FRAN ONE (09:32)
[2020-11-10] MEDS ORDERED: MIDAZOLAM 2 MG/2 ML (VERSED) VIAL ONE (09:33)
[2020-11-10] MEDS ORDERED: fentaNYL INJ 100 MCG/2 ML AMP ONE (09:33)
[2020-11-10] MEDS ORDERED: SEVOFLURANE (ULTANE) 15 ML INHAL SOLN ONE (09:33)
[2020-11-10] MEDS ORDERED: GLYCOPYRROLATE 0.2 MG/ML (ROBINUL) 2 ML VIAL ONE (09:33)
[2020-11-10] MEDS ORDERED: NEOSTIGMINE 3 MG/3 ML VIAL ONE (09:33)
--- NOTE | 2020-11-10 10:04 | Progress Note-Pre Operative ---
Pre-Operative Progress Note H&P Reviewed The H&P was reviewed, patient examined and no changes noted. Date Seen by Provider: Nov 10, 2020 Time Seen by Provider: 09:30 Date H&P Reviewed: Nov 10, 2020 Time H&P Reviewed: 09:35 Pre-Operative Diagnosis: mass right cheek. NICOLASA DIAZ DDS Nov 10, 2020 10:04
[2020-11-10] MEDS ORDERED: HYDROcodone/APAP 7.5MG-325 MG/15 ML (LORTAB) UDC PO PRN (10:15)
[2020-11-10] MEDS ORDERED: ENALAPRILAT 1.25 MG/1 ML (VASOTEC) 1 ML VIAL IV ONE (10:43)
--- NOTE | 2020-11-10 11:27 | Progress Note-Post Operative ---
Post-Operative Progess Note Surgeon (s)/Medical Affairs Leader (s) Surgeon NICOLASA DIAZ DDS Medical Affairs Leader: russ garza Pre-Operative Diagnosis mass right cheek. Post-Operative Diagnosis possible lymphoma Procedure & Operative Findings Date of Procedure 11/10/20 Procedure Performed/Findings bx and Anesthesia Type geta Estimated Blood Loss Estimated blood loss (mL): minimal Specimens/Packing Specimens Removed 2 masses one 3x3x2, one 4x4x3 Packing: none NICOLASA DIAZ DDS Nov 10, 2020 11:27
[2020-11-10] MEDS ORDERED: ACHD5005 PO (11:59)
[2020-11-10] MEDS ORDERED: CEPH500T PO (11:59)
--- NOTE | 2020-11-10 13:28 | Anesthesia-General Post-Op ---
General Patient Condition Mental Status/LOC: Same as Preop Cardiovascular: Satisfactory Nausea/Vomiting: Absent Respiratory: Satisfactory Pain: Controlled Complications: Absent Post Op Complications Complications None Follow Up Care/Instructions Patient Instructions None needed. Anesthesia/Patient Condition Patient Condition Patient is doing well, no complaints, stable vital signs, no apparent adverse anesthesia problems. No complications reported per nursing. LOUISA WRIGHT CRNA Nov 10, 2020 13:28
[2020-11-10] MEDS ORDERED: ceFAZolin INJECTION 1,000 MG in WATER (STERILE) FOR INJECTION 10 ML IV SCH (16:00)
--- NOTE | 2020-12-03 22:12 | OPERATIVE REPORT ---
DATE OF SERVICE: 11/10/2020 [employer] [employer]. PREOPERATIVE DIAGNOSIS: Mass in right cheek approximately feels like 6 x 4 cm. 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 PROCEDURE: Removal of two leiomyomas of right cheek. SURGEON: Nicolasa Diaz DDS RASPER MACHINE OPERATOR: . ANESTHESIA: General endotracheal. COMPLICATIONS: There were no complications. ESTIMATED BLOOD LOSS: Minimal. FLUIDS: 800 mL of crystalloid. HISTORY OF PRESENT ILLNESS AND INDICATIONS FOR PROCEDURE: The patient is a 45-year-old essentially healthy white male, who presents to our outpatient clinic. Upon evaluating, he has what appears to be clinically to be a mass in his right cheek inferior to the malar prominence approximately at the level of the nasolabial fold. The patient states it has been there for greater than 2 to 3 years. I advised him with that timeframe that it is most likely some sort of benign process be a lipoma. It did not appear to be an epidermoid cyst. After speaking with him extensively and advising him that we would attempt to perform removal of this lesion intraorally, but I may have to approach it extraorally depending on the etiology of the mass. I advised him that he may have some sensory and actual functional deficits postoperatively, particularly in the division of the maxillary nerve and the zygomatic branch of the facial nerve. After this, we allowed him to have time for questions, these were answered, and he was scheduled for surgery at the earliest opportune time. DESCRIPTION OF PROCEDURE: The patient was taken to the operating room and placed on the operating table. The appropriate monitors were placed, and anesthesia was induced via orotracheal intubation without difficulty. Once this was secured, the surgeon left the room, scrubbed, returned, donned sterile gowns and gloves and prepped and draped the patient in the usual standard sterile fashion. After depositing local anesthesia both intraorally and extraorally and doing a V2 block, this was allowed to take effect and then used a #15 blade to excise through the mucosa and the subcuticular tissue intraorally. Then, I was able to identify the mass, one large mass. There were 2 separate masses, each about the same size, approximately 2 x 3 cm. After this, I was able to sharply and bluntly dissect both lesions out without difficulty. There was no excessive hemorrhage, then they were sent for frozen section. At one point, it appeared it might have been a lymphoma; however, after evaluating it appeared not to be either Hodgkins or non-Hodgkin's lymphoma and it was sent for further testing. At this point, we irrigated the wound with normal saline and then closed with 3-0 chromic gut in an interrupted fashion. This completed our procedure. He was allowed to emerge from his general anesthetic. He was then extubated in the operating room after breathing spontaneously and he was transported to the recovery room, assessed to have stable vital signs, breathing spontaneously with a pulse ox of 99%. Job ID: [id number] DocumentID: [id number] Dictated Date: 12/03/2020 15:22:51 Accessories Repairer Date: 12/03/2020 22:11:18 Dictated By: NICOLASA DIAZ DDS
== END 2020-11-10 13:44 | disposition home or self-care (01) ==
LOC: SDC 07:59
PROVIDERS: ATTEND Specialist
DX: D21.0 Benign neoplasm of connective and other soft tissue of head, face and neck (principal); I10 Essential (primary) hypertension; E78.5 Hyperlipidemia, unspecified; J45.909 Unspecified asthma, uncomplicated; F17.210 Nicotine dependence, cigarettes, uncomplicated; Z90.89 Acquired absence of other organs; Z79.899 Other long term (current) drug therapy
CPT/HCPCS: 87081; 88184; 88185; 88307; 88341; 88342

== ENCOUNTER → 2022-06-04 | Outpatient (CLI) | payer BC ==
[~2022-06-04] MED LIST changes: +ACHD5005 PO; +CEPH500T PO
== END ==
LOC: CARD 15:08
PROVIDERS: ATTEND Nurse Practitioner Family
DX: I27.21 Secondary pulmonary arterial hypertension (principal)
CPT/HCPCS: 93306

== ENCOUNTER 2022-07-13 07:51 | Day surgery (SDC) | payer BC ==
[2022-07-13] VITALS (9 sets, daily range): BP systolic 112–143; BP diastolic 79–94
[~2022-07-13] VITALS: Ht 185.4 cm; Wt 89.4 kg
[2022-07-13] MEDS ORDERED: LIDOCAINE 2% VISCOUS 15 ML UDC ONE (07:56)
[2022-07-13] MEDS ORDERED: NS IV 1000 ML 1,000 ML ONE (07:56)
[2022-07-13] MEDS ORDERED: NS IV 1000 ML 1,000 ML IV ONE (08:00)
[2022-07-13 08:30] LABS: HEMATOCRIT 46 % (40-54); HEMOGLOBIN 15.1 g/dL (13.3-17.7); MEAN CORPUSCULAR HEMOGLOBIN 29 pg (25-34); MEAN CORPUSCULAR HGB CONC 33 g/dL (32-36); MEAN CORPUSCULAR VOLUME 88 fL (80-99); MEAN PLATELET VOLUME 10.6 fL (9.0-12.2); PLATELET COUNT 286 10^3/uL (130-400)
[2022-07-13] MEDS ORDERED: AMLO-251 PO (08:41)
[2022-07-13] MEDS ORDERED: ATOR20TA66 PO (08:41)
[2022-07-13] MEDS ORDERED: LISI20TA26 PO (08:41)
[2022-07-13 08:51] LABS: ALBUMIN 4.5 GM/DL (3.2-4.5); BILIRUBIN,TOTAL 0.7 MG/DL (0.1-1.0); CALCIUM 9.2 MG/DL (8.5-10.1); CREATININE SERUM 0.87 MG/DL (0.60-1.30); TOTAL PROTEIN 7.7 GM/DL (6.4-8.2)
[2022-07-13 09:09] LABS: INR 0.9 (0.8-1.4); PROTHROMBIN TIME PATIENT 12.6 SEC (12.2-14.7)
[2022-07-13] MEDS ORDERED: fentaNYL INJ 100 MCG/2 ML AMP ONE (09:10)
[2022-07-13] MEDS ORDERED: MIDAZOLAM 5 MG/5 ML (VERSED) VIAL ONE (09:11)
[2022-07-13] MEDS ORDERED: MIDAZOLAM 5 MG/5 ML (VERSED) VIAL IVP ONE (10:35)
[2022-07-13] MEDS ORDERED: LIDOCAINE 2% VISCOUS 15 ML UDC PO ONE (11:30)
[2022-07-13] MEDS ORDERED: fentaNYL INJ 100 MCG/2 ML AMP IVP ONE (11:30)
[2022-07-13] MEDS ORDERED: MIDAZOLAM 10 MG/2 ML (VERSED) VIAL IM ONE (11:30)
== END 2022-07-13 11:45 | disposition home or self-care (01) ==
LOC: CATH 07:51
PROVIDERS: ATTEND Internal Medicine Cardiovascular Disease
DX: Q21.12 Patent foramen ovale (principal); I11.9 Hypertensive heart disease without heart failure; R07.89 Other chest pain; R00.2 Palpitations; G47.33 Obstructive sleep apnea (adult) (pediatric); J45.909 Unspecified asthma, uncomplicated; I27.21 Secondary pulmonary arterial hypertension; H54.62 Unqualified visual loss, left eye, normal vision right eye; F17.210 Nicotine dependence, cigarettes, uncomplicated
CPT/HCPCS: 36415; 80053; 80061; 85027; 85610; 85730; 87081; 93005; 93312

== ENCOUNTER 2022-12-15 23:06 | Emergency (ER) | payer BC ==
[~2022-12-15] VITALS: Ht 185.5 cm; Wt 93.0 kg
[~2022-12-15 23:06] MED LIST changes: +AMLO-251 PO; +ATOR20TA66 PO; +LISI20TA26 PO
--- NOTE | 2022-12-15 23:14 | ED Cardiac General ---
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 no assoc sym; htn, chol; stress a few months ago. singh chery Patient is a 47-year-old male who presents to the emergency room with a chief complaint of palpitations while getting ready for bed approximately 45 minutes prior to arrival. Patient states that he was laying in bed and felt his heart "skipping beats". Patient denies any associated chest pain, pressure, heaviness,, tightness or squeezing. Has never had symptoms quite like this before. He denies any stimulants prior to bed, no caffeine intake prior to bed. He was not short of breath with the symptoms, did not break out into a sweat and was not nauseated. 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 He is treated for hypertension and hypercholesterolemia. Patient is a smoker. He denies any recent illnesses such as fevers, chills, cough, congestion, shortness of breath. No problems with bowel or bladder. His symptoms have resolved on presentation. Timing/Duration: 1 hour Severity: moderate Prior CP/Workup: stress test NTG SL DIRECTOR OF GOVERNMENT SALES: No ASA po DIRECTOR OF GOVERNMENT SALES: No Associated Systoms: Denies Symptoms Allergies and Home Medications Allergies Coded Allergies: No Known Drug Allergies (Unverified , 08/23/20) Patient Home Medication List Home Medication List Reviewed: Yes Albuterol Sulfate (Proventil Hfa) 6.7 Gm Hfa.aer.ad, 2 PUFF INH Q6H PRN for WHEEZING, (Reported) Entered as Reported by: KATHY WOOTEN on 11/03/20 1231 Amlodipine Besylate (Amlodipine Besylate) 10 Mg Tablet, 10 MG PO DAILY, (Reported) Entered as Reported by: GUILHERME RIDDLE on 07/13/22 0841 Atorvastatin Calcium (Atorvastatin Calcium) 20 Mg Tablet, 20 MG PO DAILY, (Reported) Entered as Reported by: GUILHERME RIDDLE on 07/13/22 0841 Budesonide/Formoterol Fumarate (Symbicort 160-4.5 Mcg Inhaler) 160 Mcg-4.5 Mcg/Actuation Hfa.aer.ad, Unknown Dose IH BID, (Reported) Entered as Reported by: VASILIY DUBOSE on 12/15/22 2315 Last Action: New Order Lisinopril (Lisinopril) 20 Mg Tablet, 20 MG PO DAILY, (Reported) Entered as Reported by: GUILHERME RIDDLE on 07/13/22 0841 Metoprolol Succinate (Metoprolol Succinate) 200 Mg Tab.er.24h, 200 MG PO DAILY, (Reported) Entered as Reported by: KATHY WOOTEN on 11/03/20 1226 Review of Systems Review of Systems Constitutional: see HPI EENTM: No Symptoms Reported Respiratory: No Symptoms Reported Cardiovascular: Irregular Heart Rate, Palpitations Gastrointestinal: No Symptoms Reported Genitourinary: No Symptoms Reported Musculoskeletal: no symptoms reported Skin: no symptoms reported Psychiatric/Neurological: No Symptoms Reported All Other Systems Reviewed Negative Unless Noted: Yes Past Togmjtu-Regqki-Mouhec Hx Seasonal Allergies Seasonal Allergies: No Past Medical History Surgeries: Yes (LEFT EYE SURGERIES DUE TO TRAUMA) Appendectomy, Eye Surgery Respiratory: Yes Asthma Currently Using CPAP: No Cardiac: Yes High Cholesterol, Hypertension Neurological: No Genitourinary: No Gastrointestinal: No Musculoskeletal: No Endocrine: No HEENT: Yes (LEFT EYE TRAUMA-MULTIPLE SURGERIES-MINIMAL VISION AND DISCONJUGATE GAZE ) Cancer: No Psychosocial: No Integumentary: Yes (facial tumor ) Blood Disorders: No Family Medical History SOCIAL HISTORY: -ETOH--RARE USE -DRUGS--THC, "STIMULANTS" IN THE PAST -SMOKES 1 1/2 PPD Physical Exam Vital Signs Vital Signs - First Documented 12/15/22 23:11 Temp 36.2 Pulse 78 Resp 16 B/P (MAP) 157/93 (114) Pulse Ox 98 O2 Delivery Room Air Capillary Refill : Height, Weight, BMI Height: '" Weight: lbs. oz. kg; 26.00 BMI Method: General Appearance: No Apparent Distress, WD/WN HEENT: PERRL/EOMI Neck: Normal Inspection Respiratory: Lungs Clear, Normal Breath Sounds, No Accessory Muscle Use, No Respiratory Distress Cardiovascular: Regular Rate, Rhythm, Normal Peripheral Pulses Gastrointestinal: Non Tender, Soft Extremity: Normal Capillary Refill, Normal Inspection, Normal Range of Motion, Non Tender, No Calf Tenderness, No Pedal Edema Neurologic/Psychiatric: Alert, Oriented x3, No Motor/Sensory Deficits, Normal Mood/Affect, financial investment adviser II-XII Norm as Tested Skin: Normal Color, Warm/Dry Progress/Results/Core Measures Results/Orders Lab Results Laboratory Tests Test 12/15/22 23:38 Range/Units Sodium Level 140 135-145 MMOL/L Potassium Level 3.4 L 3.6-5.0 MMOL/L Chloride Level 107 98-107 MMOL/L Carbon Dioxide Level 20 L 21-32 MMOL/L Anion Gap 13 5-14 MMOL/L Blood Urea Nitrogen 22 H 7-18 MG/DL Creatinine 0.88 0.60-1.30 MG/DL Estimat Glomerular Filtration Rate 105 BUN/Creatinine Ratio 25 Glucose Level 124 H 70-105 MG/DL Calcium Level 9.5 8.5-10.1 MG/DL Magnesium Level 1.9 1.6-2.4 MG/DL My Orders Orders - JAIMEE ROGERS MD Ekg Tracing (12/15/22 23:25) Basic Metabolic Panel (12/15/22 23:25) Magnesium (12/15/22 23:25) Vital Signs/I&O 12/15/22 12/16/22 23:11 01:04 Temp 36.2 Pulse 78 64 Resp 16 15 B/P (MAP) 157/93 (114) 124/80 Pulse Ox 98 98 O2 Delivery Room Air Room Air Initial ECG Impression Date: December 15, 2022 Initial ECG Impression Time: 23:37 Initial ECG Rate: 64 Initial ECG Rhythm: Normal Sinus Initial ECG Intervals: Normal Initial ECG Impression: Normal Counseling-Asymptomatic: 3-10 minutes Follow-up with PCP to: Discuss Further Options Departure Impression Primary Impression: Palpitations Disposition: HOME, SELF-CARE Condition: Stable Departure-Patient Inst. Decision time for Depature: 01:01 Referrals: CHRIS HERNANDEZ MD (PCP/Family) Primary Care Physician Patient Instructions: Palpitations Add. Discharge Instructions: Continue your daily medications as prescribed. Try and stop smoking. Drink plenty of fluids to stay well hydrated. Follow up next week with your primary care physician. Return to the Emergency Department for any new, concerning or emergent complaints. Copy Copies To 1: CHRIS HERNANDEZ MD Copies To 2: TREVOR CHERY MD [facility] JAIMEE ROGERS MD December 15, 2022 23:14
[2022-12-15] MEDS ORDERED: BUDE10.2 IH (23:15)
[2022-12-16] MEDS ORDERED: ONDANSETRON 4 MG/2 ML (SDV) Z0FRAN IVP ONE
[2022-12-16] MEDS ORDERED: KETOROLAC 15 MG/ML VIAL IVP ONE
[2022-12-16 00:22] LABS: POTASSIUM 3.4 MMOL/L (3.6-5.0)
[2022-12-16 00:24] LABS: CALCIUM 9.5 MG/DL (8.5-10.1)
[2022-12-16 00:28] LABS: CREATININE SERUM 0.88 MG/DL (0.60-1.30)
[2022-12-16 00:30] LABS: MAGNESIUM 1.9 MG/DL (1.6-2.4)
[2022-12-16 01:04] VITALS: BP 124/80
== END 2022-12-16 01:06 | disposition home or self-care (01) ==
LOC: EDUNIT# 23:06 → ER 23:08
DX: R00.2 Palpitations (principal); I10 Essential (primary) hypertension; E78.00 Pure hypercholesterolemia, unspecified; F17.210 Nicotine dependence, cigarettes, uncomplicated
CPT/HCPCS: 36415; 80048; 83735; 93005; 93041